=== PATIENT | male | born 1960 | race Caucasian/White ===

== ENCOUNTER 2019-01-31 03:42 | Emergency (ER) | payer OTHER, SELFPAY ==
[2019-01-31 03:43] VITALS: BP 157/106; PULSE 74; RESP 16; TEMP 36.8; O2SAT 99; BMI 28.2
--- NOTE | 2019-01-31 03:58 | ED.DCSUM_ITS ---
- ER Visit Summary Date of Service: 01/31/19 Chief Complaint: Bladder spasms History of Present Illness: The patient is a 58 M who presents with bladder spasms and suprapubic pain that began approximately 10 hours prior to arrival. Patient describes the pain as cramping. Patient states the pain is over the suprapubic area. Patient thinks that caffeine may trigger his bladder spasms but he is unsure. Patient states his pain improves with standing. Patient denies any nausea or vomiting. Patient denies any back pain. Patient denies any dysuria or hematuria. Physical Examination: Vital signs are stable. Patient is afebrile. Patient is in no acute distress. Oral mucosa is pink and moist. Neck is supple. Trachea is midline. There is no JVD noted. Heart was regular rate and rhythm. Lungs are clear and equal bilateral. Abdomen is soft. Bowel sounds are normal. The re is mild suprapubic tenderness. There is no rebound or guarding noted. Bladder appeared to be distended. Skin is warm dry. Cranial nerves II through XII are intact. There are no focal motor or sensory deficits noted. Test Results: Urinalysis was ordered. Occult blood was 10. The remainder was normal. Emergency Department Course and Treatment: Bladder scan was performed. There was between 700 and 790 cc of urine in the bladder. Whitlock catheter was then placed. There was 700 cc of urine removed. Patient felt better. Patient was given a leg bag. Patient was instructed to follow-up with his primary care physician in 2 days for removal of the catheter. Patient understood and was agreeable with the plan. All questions were answered. Disposition: Discharge home Impression: Urinary retention This note was generated with [employer] dictation software. It may contain incorrect words, spelling, and punctuation that were not noted in review of the chart prior to signing ED Disposition - Plan for ED Patient: Disposition: Home or Assisted Living Diagnosis: Urinary retention Instructions: URINARY RETENTION, Male, Whitlock Catheter, Care Referrals: EDUARDO [facility] [Other] - 2 Days
[2019-01-31] MEDS: Lidocaine Jelly 2% 20 ML Syringe (URO-JET) 20 APPLIC TOPICAL (04:57)
[2019-01-31 05:04] LABS: Bacteria 0 SEEN /hpf (None Seen); Mucous, Urine 0 SEEN /hpf (<or=2+); Squamous Epithelial Cells - UA 0 SEEN /hpf (0-5); White Blood Cells 0 SEEN /hpf (0-5)
[2019-01-31 05:05] LABS: Color, Urine Yellow (Yellow); Glucose, Dipstick Normal (Normal); Ketone-Dipstick Negative (Negative); Leukocyte Esterase-Dipstick Negative /ul (Negative); Nitrite-Dipstick Negative (Negative); Occult Blood-Urine 10 /ul (Negative); Protein-Dipstick Negative (Negative); Specific Gravity, Urine 1.015 (1.002-1.030); Urine Bilirubin Dipstick Negative (Negative); Urine Clarity Clear (Clear); Urine Urobilinogen Normal (Normal)
[2019-01-31 05:11] LABS: Red Blood Cells-Urine 0-5 SEEN /hpf (0-5)
[2019-01-31 05:28] VITALS: BP 136/72; PULSE 71; RESP 15; O2SAT 95
--- NOTE | 2019-01-31 05:40 | ED.RN ---
KRAFT CATHETER EMPTIED. 700 CC CLEAR YELLOW URINE NOTED.
== END 2019-01-31 05:45 | disposition home or self-care (01) ==
PROVIDERS: Emergency Provider Emergency Medicine
DX: R33.9 Retention of urine, unspecified (principal); E03.9 Hypothyroidism, unspecified; Z87.891 Personal history of nicotine dependence; Z79.899 Other long term (current) drug therapy
CPT/HCPCS: 51702; 81001; 99284

== ENCOUNTER 2019-02-04 12:27 | Emergency (ER) | payer OTHER, SELFPAY ==
[2019-02-04 12:28] VITALS: BP 136/85; PULSE 76; RESP 17; TEMP 36.4; O2SAT 98; BMI 28.2
--- NOTE | 2019-02-04 12:37 | ED.VISSUMM ---
- ER Visit Summary Date of Service: 02/04/19 Chief Complaint: I want my Whitlock catheter removed History of Present Illness: The patient is a 58 M who wants his Whitlock catheter removed. It was placed 5 days ago for urinary retention. He tried to get into his PCP and urologist and cannot until next week. He would like his catheter out today. He denies any symptoms except that the catheter is been pulling and that is why he wants it out. He does have a history of BPH. Physical Examination: Vital signs reviewed. HEENT exam unremarkable. Heart is regular rate and rhythm without murmurs. Lungs are clear to auscultation. Abdomen is soft and nontender. exam reveals a Whitlock catheter that is in place. No other abnormalities. Extremities reveal no edema. Skin exam normal. Neurologic exam normal. Test Results: None performed Emergency Department Course and Treatment: The patient had his Whitlock catheter removed. A voiding trial was performed and he did void about 50 cc of urine. A bladder scan revealed only 12 mL. He would like to go home and follow-up with his urologist next week. I feel that that is appropriate at this time. Treatment Plan: [] Disposition: Discharge Impression: Whitlock catheter removal This note was generated with [employer] dictation software. It may contain incorrect words, spelling, and punctuation that were not noted in review of the chart prior to signing ED Disposition - Plan for ED Patient: Referrals: Jeremy Cheung,Out of [Primary Care Provider] -
[2019-02-04 12:42] VITALS: RESP 18
--- NOTE | 2019-02-04 14:22 | ED.DEP ---
ED Disposition - Plan for ED Patient: Disposition: Home or Assisted Living Instructions: BPH (Enlarged Prostate) Referrals: [facility] Doctor,Out of [Primary Care Provider] -
[2019-02-04 14:27] VITALS: RESP 16
== END 2019-02-04 14:27 | disposition home or self-care (01) ==
PROVIDERS: Emergency Provider Emergency Medicine
DX: Z46.6 Encounter for fitting and adjustment of urinary device (principal); N40.1 Benign prostatic hyperplasia with lower urinary tract symptoms; R33.8 Other retention of urine
CPT/HCPCS: 99282